=== PATIENT | female | born 1955 | race Caucasian/White ===

== ENCOUNTER 2023-03-05 09:03 | Inpatient (IN) | payer OTHER ==
[2023-03-05 09:13] VITALS: BMI 27.4
[2023-03-05] MEDS ORDERED: SODIUM CHLORIDE 1,000 ML IV STA (09:40)
[2023-03-05] MEDS ORDERED: ACETAMINOPHEN 1000 MG/100 ML BAG IVPB ONE (09:40)
[2023-03-05] MEDS ORDERED: ONDANSETRON 4 MG/2 ML VIAL IVPUSH ONE (09:40)
[2023-03-05] MEDS ORDERED: ACETAMINOPHEN INJECTION 100 ML IVPB ONE (09:57)
[2023-03-05] MEDS ORDERED: ONDANSETRON 4 MG/2 ML VIAL ONE (09:57)
[2023-03-05] MEDS ORDERED: METOCLOPRAMIDE HCL INJECTION 10 MG/2 ML VIAL IVPUSH ONE (09:59)
[2023-03-05 10:36] LABS: BASO % 0.5 % (0-2.0); EOS % 2.8 % (0-4.5); HEMATOCRIT 40.4 % (32.4-45.2); HEMOGLOBIN 13.6 GM/dL (10.7-15.3); LYMPH % 14.3 % (8-40); MCH 28.6 pg (25.7-33.7); MCHC 33.6 g/dl (32.0-36.0); MEAN PLT VOLUME 8.1 fl (7.5-11.1); MONO % 6.6 % (3.8-10.2); NEUT % 75.8 % (42.8-82.8); PLATELET COUNT 398 10^3/uL (134-434); RBC 4.75 M/mm3 (3.60-5.2); RDW 14.4 % (11.6-15.6)
[2023-03-05] MEDS ORDERED: METOCLOPRAMIDE HCL INJECTION 10 MG/2 ML VIAL ONE (10:54)
[2023-03-05 11:27] LABS: POTASSIUM 3.7 mmol/L (3.5-5.1)
[2023-03-05 11:29] LABS: ALBUMIN 4.2 g/dl (3.4-5.0); CALCIUM 9.1 mg/dL (8.5-10.1)
[2023-03-05 11:30] LABS: BLOOD UREA NITROGEN 15.4 mg/dL (7-18); MAGNESIUM 1.9 mg/dL (1.8-2.4)
[2023-03-05 11:33] LABS: CREATININE 0.6 mg/dL (0.55-1.3)
[2023-03-05 11:34] LABS: BILIRUBIN,TOTAL 0.5 mg/dL (0.2-1); TOT PROT 7.1 g/dl (6.4-8.2)
[2023-03-05] MEDS ORDERED: LORazepam 2 MG/ML SDV VIAL IVPUSH STA (12:23)
[2023-03-05] MEDS ORDERED: ACETAMINOPHEN 1000 MG/100 ML BAG IVPB PRN (16:43)
[2023-03-05] MEDS ORDERED: SODIUM CHLORIDE 1,000 ML IV SCH (16:45)
[2023-03-05] MEDS ORDERED: ERTAPENEM SODIUM 1 GM VIAL ONE (17:22)
[2023-03-05] MEDS: ERTAPENEM SODIUM 1 GM in SODIUM CHLORIDE 50 ML IVPB SCH (17:42)
[2023-03-05] MEDS: LACTATED RINGERS SOLUTION 1,000 ML/1,000 ML INFUS.BAG IV SCH (17:42)
[2023-03-05] MEDS ORDERED: CYCLOBENZAPRINE HCL 10 MG TABLET (FP) ONE (20:11)
[2023-03-06] MEDS: guaiFENesin 600 MG TABLET.ER (FP) PO SCH ×3 (02:34→23:21)
[2023-03-06] MEDS: ATORVASTATIN CA 10 MG TABLET (FP) PO SCH ×2 (02:34→23:21)
[2023-03-06] MEDS: CYCLOBENZAPRINE HCL 10 MG TABLET (FP) PO SCH ×2 (02:34→23:21)
[2023-03-06] MEDS: INSULIN SLIDING SCALE (NOVOLOG) 1 VIAL SQ SCH ×5 (02:35→23:25)
[2023-03-06 03:59] VITALS: RESP 18
[2023-03-06 09:26] LABS: BASO % 0.6 % (0-2.0); EOS % 0.6 % (0-4.5); HEMATOCRIT 39.9 % (32.4-45.2); HEMOGLOBIN 13.3 GM/dL (10.7-15.3); LYMPH % 23.4 % (8-40); MCH 28.6 pg (25.7-33.7); MCHC 33.3 g/dl (32.0-36.0); MEAN CELL VOLUME 86.1 fl (80-96); MEAN PLT VOLUME 7.7 fl (7.5-11.1); NEUT % 63.4 % (42.8-82.8); PLATELET COUNT 404 10^3/uL (134-434); RBC 4.64 M/mm3 (3.60-5.2); RDW 14.6 % (11.6-15.6); WHITE BLOOD COUNT 10.9 K/mm3 (4.0-10.0)
[2023-03-06 09:41] LABS: POTASSIUM 3.5 mmol/L (3.5-5.1)
[2023-03-06 09:43] LABS: CALCIUM 8.9 mg/dL (8.5-10.1)
[2023-03-06 09:44] LABS: BLOOD UREA NITROGEN 10.8 mg/dL (7-18); MAGNESIUM 1.8 mg/dL (1.8-2.4)
[2023-03-06 09:47] LABS: CREATININE 0.7 mg/dL (0.55-1.3); PHOSPHOROUS 3.9 mg/dL (2.5-4.9)
[2023-03-06 09:48] LABS: BILIRUBIN,TOTAL 0.5 mg/dL (0.2-1); TOT PROT 7.1 g/dl (6.4-8.2)
[2023-03-06] MEDS ORDERED: PATIENT'S OWN MEDICATION (NON-FORMULARY) (Docosahexanoic Acid/Epa [Fish Oil Softgel] 1 EAC PO SCH (10:00)
[2023-03-06] MEDS ORDERED: DULoxetine HCL 60 MG CAPSULE.DR PO SCH (10:00)
[2023-03-06] MEDS ORDERED: PATIENT'S OWN MEDICATION (NON-FORMULARY) (Famotidine [Pepcid] 40 MG Tablet) PO SCH (10:00)
[2023-03-06] MEDS: ENOXAPARIN NA (PORCINE) 40 MG/0.4 ML DISP.SYRIN SQ SCH (11:01)
[2023-03-06] MEDS: buPROPion HCL 100 MG TABLET PO SCH (11:05)
[2023-03-06] MEDS: ASPIRIN 81 MG CHEWABLE TABLETS PO SCH (11:05)
[2023-03-06] MEDS: PANTOPRAZOLE 40 MG TABLET PO SCH (11:05)
[2023-03-06 14:08] LABS: COCAINE, UR NEGATIVE (NEGATIVE); METHADONE, UR NEGATIVE (NEGATIVE); PHENCYCLIDINE,URINE NEGATIVE (NEGATIVE); URINE AMPHETAMINES NEGATIVE (NEGATIVE); URINE BENZODIAZEPINES NEGATIVE (NEGATIVE)
[2023-03-06 14:09] LABS: OPIATES, URI NEGATIVE (NEGATIVE)
[2023-03-06 14:12] LABS: URINE BARBITURATES NEGATIVE (NEGATIVE)
[2023-03-06] MEDS: ERTAPENEM SODIUM 1 GM in SODIUM CHLORIDE 50 ML IVPB SCH (15:46)
[2023-03-06] MEDS: DULoxetine HCL 30 MG CAPSULE.DR PO SCH (15:46)
[2023-03-06] MEDS: LACTATED RINGERS SOLUTION 1,000 ML/1,000 ML INFUS.BAG IV SCH (19:38)
[2023-03-06] MEDS: TRIMETHOBENZAMIDE HCL 200MG/2ML INJ IM PRN (19:38)
[2023-03-06] MEDS ORDERED: PROMETHAZINE HCL 25 MG/1 ML VIAL IVPB ONE (20:49)
[2023-03-06] MEDS ORDERED: METOCLOPRAMIDE HCL INJECTION 10 MG/2 ML VIAL IVPUSH ONE (20:55)
[2023-03-06] MEDS: POLYETHYLENE GLYCOL (HEALTHYLAX) 3350 17 GM PACKET PO SCH (23:24)
[2023-03-07] MEDS: TRIMETHOBENZAMIDE HCL 200MG/2ML INJ IM PRN (02:41)
[2023-03-07] MEDS: INSULIN SLIDING SCALE (NOVOLOG) 1 VIAL SQ SCH ×4 (06:27→21:55)
[2023-03-07] MEDS ORDERED: METOCLOPRAMIDE HCL INJECTION 10 MG/2 ML VIAL IVPUSH ONE (08:06)
[2023-03-07] MEDS ORDERED: TRIMETHOBENZAMIDE HCL 200MG/2ML INJ IM ONE (08:21)
[2023-03-07 10:45] LABS: HEMATOCRIT 38.3 % (32.4-45.2); MCH 29.1 pg (25.7-33.7); MCHC 33.9 g/dl (32.0-36.0); MEAN CELL VOLUME 85.8 fl (80-96); MEAN PLT VOLUME 7.7 fl (7.5-11.1); PLATELET COUNT 375 10^3/uL (134-434); RBC 4.46 M/mm3 (3.60-5.2); RDW 13.9 % (11.6-15.6); WHITE BLOOD COUNT 12.5 K/mm3 (4.0-10.0)
[2023-03-07 10:58] LABS: POTASSIUM 3.1 mmol/L (3.5-5.1)
[2023-03-07 10:59] LABS: BLOOD UREA NITROGEN 12.5 mg/dL (7-18); CALCIUM 8.6 mg/dL (8.5-10.1)
[2023-03-07 11:03] LABS: CREATININE 0.5 mg/dL (0.55-1.3)
[2023-03-07] MEDS: DULoxetine HCL 30 MG CAPSULE.DR PO SCH (11:15)
[2023-03-07] MEDS: guaiFENesin 600 MG TABLET.ER (FP) PO SCH ×2 (11:15→21:55)
[2023-03-07] MEDS: PANTOPRAZOLE 40 MG TABLET PO SCH (11:15)
[2023-03-07] MEDS: ASPIRIN 81 MG CHEWABLE TABLETS PO SCH (11:16)
[2023-03-07] MEDS: OMEGA-3 ACID ETHYL ESTERS (FATTY-ACIDS) 1 GM CAPSULE (FP) PO SCH (11:16)
[2023-03-07] MEDS: buPROPion HCL 100 MG TABLET PO SCH (11:16)
[2023-03-07] MEDS: POLYETHYLENE GLYCOL (HEALTHYLAX) 3350 17 GM PACKET PO SCH ×2 (11:16→21:55)
[2023-03-07] MEDS: ENOXAPARIN NA (PORCINE) 40 MG/0.4 ML DISP.SYRIN SQ SCH (11:16)
[2023-03-07] MEDS ORDERED: LORazepam 2 MG/ML SDV VIAL IVPUSH PRN (15:16)
[2023-03-07] MEDS ORDERED: POTASSIUM CHLORIDE ORAL LIQUID 20 MEQ/15 ML PO ONE (16:00)
[2023-03-07] MEDS: LACTATED RINGERS SOLUTION 1,000 ML/1,000 ML INFUS.BAG IV SCH (18:41)
[2023-03-07] MEDS: ATORVASTATIN CA 10 MG TABLET (FP) PO SCH (21:55)
[2023-03-07] MEDS: CYCLOBENZAPRINE HCL 10 MG TABLET (FP) PO SCH (21:55)
[2023-03-08] MEDS: INSULIN SLIDING SCALE (NOVOLOG) 1 VIAL SQ SCH ×4 (06:32→23:39)
[2023-03-08] MEDS: guaiFENesin 600 MG TABLET.ER (FP) PO SCH ×2 (09:55→23:30)
[2023-03-08] MEDS: ASPIRIN 81 MG CHEWABLE TABLETS PO SCH (09:55)
[2023-03-08] MEDS: DULoxetine HCL 30 MG CAPSULE.DR PO SCH (09:55)
[2023-03-08] MEDS: POLYETHYLENE GLYCOL (HEALTHYLAX) 3350 17 GM PACKET PO SCH ×2 (09:55→23:29)
[2023-03-08] MEDS: buPROPion HCL 100 MG TABLET PO SCH (09:56)
[2023-03-08] MEDS: OMEGA-3 ACID ETHYL ESTERS (FATTY-ACIDS) 1 GM CAPSULE (FP) PO SCH (09:56)
[2023-03-08] MEDS: ENOXAPARIN NA (PORCINE) 40 MG/0.4 ML DISP.SYRIN SQ SCH (09:57)
[2023-03-08 10:23] LABS: HEMATOCRIT 38.7 % (32.4-45.2); HEMOGLOBIN 13.2 GM/dL (10.7-15.3); MCH 29.3 pg (25.7-33.7); MCHC 34.2 g/dl (32.0-36.0); MEAN CELL VOLUME 85.8 fl (80-96); MEAN PLT VOLUME 7.5 fl (7.5-11.1); PLATELET COUNT 373 10^3/uL (134-434); RBC 4.51 M/mm3 (3.60-5.2); RDW 14.2 % (11.6-15.6); WHITE BLOOD COUNT 10.1 K/mm3 (4.0-10.0)
[2023-03-08 10:35] LABS: POTASSIUM 3.2 mmol/L (3.5-5.1)
[2023-03-08 10:38] LABS: CALCIUM 8.8 mg/dL (8.5-10.1)
[2023-03-08 10:39] LABS: BLOOD UREA NITROGEN 16.7 mg/dL (7-18)
[2023-03-08 10:42] LABS: CREATININE 0.7 mg/dL (0.55-1.3)
[2023-03-08 10:44] LABS: BILIRUBIN,TOTAL 0.7 mg/dL (0.2-1)
[2023-03-08] MEDS: LACTATED RINGERS SOLUTION 1,000 ML/1,000 ML INFUS.BAG IV SCH (10:58)
[2023-03-08] MEDS: PANTOPRAZOLE SODIUM 40 MG VIAL IVPUSH SCH (10:59)
[2023-03-08] MEDS: CYCLOBENZAPRINE HCL 10 MG TABLET (FP) PO SCH (23:30)
[2023-03-08] MEDS: ATORVASTATIN CA 10 MG TABLET (FP) PO SCH (23:30)
[2023-03-09] MEDS ORDERED: MAG HYDROX/AL HYDROX/SIMETH 30 ML UNIT-DOSE CUP PO ONE (02:39)
[2023-03-09 04:48] VITALS: BP 133/67; PULSE 72; TEMP 97.1
[2023-03-09] MEDS: INSULIN SLIDING SCALE (NOVOLOG) 1 VIAL SQ SCH (06:16)
[2023-03-09] MEDS: DULoxetine HCL 30 MG CAPSULE.DR PO SCH (09:12)
[2023-03-09] MEDS: OMEGA-3 ACID ETHYL ESTERS (FATTY-ACIDS) 1 GM CAPSULE (FP) PO SCH (09:12)
[2023-03-09] MEDS: buPROPion HCL 100 MG TABLET PO SCH (09:12)
[2023-03-09] MEDS: guaiFENesin 600 MG TABLET.ER (FP) PO SCH (09:12)
[2023-03-09] MEDS: ASPIRIN 81 MG CHEWABLE TABLETS PO SCH (09:12)
[2023-03-09] MEDS: POLYETHYLENE GLYCOL (HEALTHYLAX) 3350 17 GM PACKET PO SCH (09:18)
[2023-03-09] MEDS: LACTATED RINGERS SOLUTION 1,000 ML/1,000 ML INFUS.BAG IV SCH (09:18)
[2023-03-09] MEDS: ENOXAPARIN NA (PORCINE) 40 MG/0.4 ML DISP.SYRIN SQ SCH (09:18)
[2023-03-09] MEDS: PANTOPRAZOLE SODIUM 40 MG VIAL IVPUSH SCH (09:20)
[2023-03-09] MEDS ORDERED: PANTOPRAZOLE 40 MG TABLET PO ONE (10:00)
== END 2023-03-09 10:10 | disposition home or self-care (01) | DRG 74 ==
LOC: JER 09:03 → JERBED 15:12 → J6S 21:50 → OBSVTOIN 03-07 10:53
PROVIDERS: ADMIT Internal Medicine; ATTEND Internal Medicine
DX: E11.43 Type 2 diabetes mellitus with diabetic autonomic (poly)neuropathy (principal); E87.20 Acidosis, unspecified; K52.9 Noninfective gastroenteritis and colitis, unspecified; K21.9 Gastro-esophageal reflux disease without esophagitis; E78.5 Hyperlipidemia, unspecified; K31.84 Gastroparesis; M79.7 Fibromyalgia; F12.90 Cannabis use, unspecified, uncomplicated; D72.829 Elevated white blood cell count, unspecified; K80.20 Calculus of gallbladder without cholecystitis without obstruction; Z79.84 Long term (current) use of oral hypoglycemic drugs
CPT/HCPCS: 36415; 74174-TC; 74176-TC; 76700-TC; 80048; 80053; 80307; 82010; 82962; 83605; 83690; 83735; 84100; 85025; 85027; 93005; 93010; 99285-25; G0378; Q9967